=== PATIENT | female | born 1995 | race Caucasian/White ===

== ENCOUNTER 2022-05-11 19:53 | Inpatient (IN) | payer MEDICARE, MEDICAID ==
[2022-05-11 20:38] LABS: BASOPHILS % (AUTO) 0.3 %; EOSINOPHILS # (AUTO) 0.1 10^3/uL (0.0-0.7); EOSINOPHILS % (AUTO) 1.6 %; HCT - HEMATOCRIT 32.9 % (37.0-47.0); HGB - HEMOGLOBIN 9.3 g/dL (12.0-16.0); LYMPHOCYTES # (AUTO) 2.2 10^3/uL (1.5-3.5); LYMPHOCYTES % (AUTO) 30.6 %; MEAN CORPUSCULAR HEMOGLOBIN 22.4 pg (27.0-31.0); MEAN CORPUSCULAR HGB CONC 28.3 g/dL (32.0-36.0); MEAN CORPUSCULAR VOLUME 79.3 fL (81.0-99.0); MEAN PLATELET VOLUME 8.9 fL (7.9-10.8); MONOCYTES # (AUTO) 0.5 10^3/uL (0.0-1.0); MONOCYTES % (AUTO) 7.1 %; NEUTROPHILS # (AUTO) 4.3 10^3/uL (1.5-6.6); NEUTROPHILS % (AUTO) 60.1 %; PLT - PLATELET COUNT 297 10^3/uL (130-450); RED BLOOD COUNT 4.15 10^6/uL (4.20-5.40); RED CELL DISTRIBUTION WIDTH 16.9 % (12.0-15.0); WHITE BLOOD COUNT 7.1 x10^3/uL (4.8-10.8)
[2022-05-11 20:49] LABS: ALBUMIN 3.9 g/dL (3.2-5.5); ALBUMIN/GLOBULIN RATIO 1.1 (1.0-2.2); BILIRUBIN,TOTAL 0.6 mg/dL (0.2-1.0); CREATININE 0.8 mg/dL (0.4-1.0); TOTAL PROTEIN 7.5 g/dL (6.7-8.2)
[2022-05-11 20:57] LABS: BILIRUBIN,URINE NEGATIVE (NEGATIVE); GLUCOSE, URINE (UA) NEGATIVE (NEGATIVE); KETONES,URINE (UA) NEGATIVE (NEGATIVE); LEUKOCYTE ESTERASE, URINE NEGATIVE (NEGATIVE); NITRITE,URINE NEGATIVE (NEGATIVE); OCCULT BLOOD,URINE NEGATIVE (NEGATIVE); PROTEIN,URINE NEGATIVE (NEGATIVE); UROBILINOGEN,URINE 0.2 (NORMAL) E.U./dL (NORMAL)
[2022-05-11 20:59] LABS: CLARITY,URINE CLEAR (CLEAR); HCG UR QUAL NEGATIVE
[2022-05-11 21:07] LABS: PLATELET ESTIMATE, MANUAL NORMAL (130-450,000) (NORMAL); PLATELET MORPHOLOGY NORMAL APPEARANCE (NORMAL); SLIDE REVIEW? Indicated; WBC MORPHOLOGY (MULTIPLE) NORMAL APPEARANCE (NORMAL)
--- NOTE | 2022-05-11 21:36 | ED Physician Documentation ---
PD HPI ABD PAIN - Stated complaint Stated Complaint: ABD PX,VOMITTING - Chief complaint Chief Complaint: Abd Pain - History obtained from History obtained from: Patient - History of Present Illness Timing - onset: How many days ago (3) Timing - details: Gradual onset, Waxing and waning Pain level now: 8 Quality: Pain Location: All over / everywhere (predominantly across lower abdomen) Improved by: Other (nothing) Worsened by: Eating Associated symptoms: Nausea, Vomiting. No: Fever, Diarrhea, Constipation Recently seen: Emergency Dept - Additional information Additional information: c/o 3 days of abdominal pain, nausea and vomiting; she says these symptoms are typical of her many previous SBO. She says she is unable to keep any PO down including medications (such as benadryl and vicodin). 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 She says she usually goes to a different ED, as she lives in [facility], but she was on [place] tonight and thus comes to this ED. She says typically she gets IV fluids, benadryl 50mg IV (she says zofran does not improve her n/v and phernergan makes her jittery; she says the benadryl has helped with the n/v), and IV dilaudid. Review of Systems Constitutional: denies: Fever, Chills, Sweats Cardiac: reports: Reviewed and negative Respiratory: reports: Reviewed and negative GI: reports: Abdominal Pain, Nausea, Vomiting. denies: Diarrhea, Hematemesis, Bloody / black stool : denies: Now [facility] PD PAST MEDICAL HISTORY - Past Medical History Past Medical History: Yes Other Past Medical History: FAP - Past Surgical History Past Surgical History: Yes Other past surgical history: total colectomy - Present Medications Home Medications: Ambulatory Orders Medication Instructions Recorded Confirmed Mupirocin 2% Oint [Bactroban 2% 1 applic TOP BID #50 gm 03/26/22 Oint] - Allergies Allergies/Adverse Reactions: Allergies Allergy/AdvReac Type Severity Reaction Status Date / Time haloperidol [From Haldol] Allergy Anxiety Verified 05/11/22 20:17 metoclopramide [From Reglan] Allergy Itching Verified 05/11/22 20:17 morphine Allergy Edema Verified 05/11/22 20:17 - Social History Does the pt smoke?: No Smoking Status: Never smoker Does the pt drink ETOH?: No Does the pt have substance abuse?: No - Immunizations Immunizations are current?: Yes PD ED PE NORMAL - Vitals Vital signs reviewed: Yes - General General: Alert and oriented X 3, No acute distress, Well developed/nourished - HEENT HEENT: Moist mucous membranes - Neck Neck: Supple, no meningeal sign - Cardiac Cardiac: RRR, No murmur - Respiratory Respiratory: No respiratory distress, Clear bilaterally - Abdomen Abdomen: Normal bowel sounds, Soft, Non tender, Non distended, Other (multiple old surgical scars noted) - Derm Derm: Normal color, Warm and dry - Extremities Extremities: No edema Results - Vitals Vitals: Vital Signs - 24 hr 05/11/22 05/11/22 05/11/22 20:13 22:14 23:00 Temperature 36.7 C 37.0 C Heart Rate 70 72 55 L Respiratory 18 16 14 Rate Blood Pressure 119/62 120/87 H 96/73 O2 Saturation 100 100 100 05/12/22 05/12/22 05/12/22 00:00 01:00 03:00 Temperature Heart Rate 58 L 56 L 53 L Respiratory 14 16 14 Rate Blood Pressure 110/69 104/67 120/70 O2 Saturation 98 99 100 05/12/22 06:00 Temperature Heart Rate 61 Respiratory 16 Rate Blood Pressure 108/48 L O2 Saturation 96 Oxygen O2 Source Room air - Labs Labs: Laboratory Tests 05/11/22 05/11/22 05/11/22 20:34 20:34 20:35 WBC 7.1 RBC 4.15 L Hgb 9.3 L Hct 32.9 L MCV 79.3 L MCH 22.4 L MCHC 28.3 L RDW 16.9 H Plt Count 297 MPV 8.9 Neut # (Auto) 4.3 Lymph # (Auto) 2.2 Starke # (Auto) 0.5 Eos # (Auto) 0.1 Baso # (Auto) 0.0 Absolute Nucleated RBC 0.00 Nucleated RBC % 0.0 Manual Slide Review Indicated WBC Morphology NORMAL APPEARANCE Platelet Estimate NORMAL (130-450,000) Platelet Morphology NORMAL APPEARANCE RBC Morph Micro Appear 1+ HYPOCHROMASIA Sodium 138 Potassium 4.0 Chloride 103 Carbon Dioxide 29 Anion Gap 6.0 BUN 14 Creatinine 0.8 Estimated GFR (MDRD) 85 L Glucose 96 Calcium 9.0 Total Bilirubin 0.6 AST 14 ALT 12 Alkaline Phosphatase 69 Total Protein 7.5 Albumin 3.9 Globulin 3.6 Albumin/Globulin Ratio 1.1 Lipase 62 H Urine Color YELLOW Urine Clarity CLEAR Urine pH 6.0 Ur Specific [place] 1.025 Urine Protein NEGATIVE Urine Glucose (UA) NEGATIVE Urine Ketones NEGATIVE Urine Occult Blood NEGATIVE Urine Nitrite NEGATIVE Urine Bilirubin NEGATIVE Urine Urobilinogen 0.2 (NORMAL) Ur Leukocyte Esterase NEGATIVE Ur Microscopic Review NOT INDICATED Urine Culture Comments NOT INDICATED Urine HCG, Qual 05/11/22 20:35 WBC RBC Hgb Hct MCV MCH MCHC RDW Plt Count MPV Neut # (Auto) Lymph # (Auto) Starke # (Auto) Eos # (Auto) Baso # (Auto) Absolute Nucleated RBC Nucleated RBC % Manual Slide Review WBC Morphology Platelet Estimate Platelet Morphology RBC Morph Micro Appear Sodium Potassium Chloride Carbon Dioxide Anion Gap BUN Creatinine Estimated GFR (MDRD) Glucose Calcium Total Bilirubin AST ALT Alkaline Phosphatase Total Protein Albumin Globulin Albumin/Globulin Ratio Lipase Urine Color Urine Clarity Urine pH Ur Specific [place] Urine Protein Urine Glucose (UA) Urine Ketones Urine Occult Blood Urine Nitrite Urine Bilirubin Urine Urobilinogen Ur Leukocyte Esterase Ur Microscopic Review Urine Culture Comments Urine HCG, Qual NEGATIVE - Rads (name of study) CT A/P Radiology: Prelim report reviewed, See rad report PD MEDICAL DECISION MAKING - ED course Complexity details: reviewed results, re-evaluated patient, considered differential, d/w patient ED course: No concerning findings on blood tests (mild anemia with low indices on otherwise normal CBC (hgb 9.3); patient says she is aware of anemia, this is not new), normal ER abdominal panel including lipase and LFTs. UA negative and UHCG negative. She is given 1 liter NS IV with 50mg IV benadryl and 1mg IV dilaudid. MACI reflects this is her 21st ED visit over past 12 months, involving 3 EDs. She has had 10 inpatient stays over past 12 months to 3 different hospitals. Patient had prolonged ED stay for observation, hoping to have adequate improvement in symptoms to allow for d/c home. However, she had recurrence of abdominal pain requiring repeated doses of the IV dilaudid. I explained that imaging would likely be necessary if I were to try to get her admitted to [facility], and patient was agreeable to CT A/P. CT A/P interpreted by radiology as "Postsurgical changes of the bowel with distended loops of small bowel in the right lower quadrant. This could indicate partial obstruction. There is no abscess or perforation. Cystic lesion of the left pelvis measuring 7.9 x 3.4 cm" [address] A/P performed and results available, patient again is having recurrent of the abdominal pain and she has another episode of emesis (approximately 100- 200 cc) Records obtained from [facility] indicate CTs obtained over a few visits in March (last month) showed a similar left pelvic lesion, varying in size but most recent CT had measurement of approximately 10 cm (thus today's measurements appear to be smaller than previous). I contacted Dr. Arteaga who came to ED to evaluate patient. She will admit patient for conservative approach (pain medication and benadryl and monitoring for progression or improvement in symptoms). Patient strongly prefers to avoid NGT; patient says NGT has often worsened her symptoms rather than improve them. Departure - Departure Disposition: ED Place in Observation Clinical Impression: Small bowel obstruction Condition: Good
[2022-05-11] MEDS ORDERED: HYDROmorphone 1 MG/ML CARPUJECT IVP STA ×2 (21:55→23:34)
[2022-05-11] MEDS ORDERED: SODIUM CHLORIDE 0.9% 1,000 ML IV STA (21:55)
[2022-05-11] MEDS ORDERED: diphenhydrAMINE INJ 50 MG/ML VIAL IVP STA (21:55)
[2022-05-12] MEDS ORDERED: HYDROmorphone 1 MG/ML CARPUJECT IVP STA ×3 (00:43→06:06)
[2022-05-12] MEDS ORDERED: SODIUM CHLORIDE 0.9% 1,000 ML IV STA (00:55)
[2022-05-12] MEDS ORDERED: iohexoL-300 100 ML VIAL ONE (02:16)
[2022-05-12] MEDS ORDERED: DIATRIZOATE MEGLU/DIATRIZO SOD 30 ML BOTTLE PO ONE ×2 (02:16→04:47)
[2022-05-12] MEDS ORDERED: diphenhydrAMINE INJ 50 MG/ML VIAL IVP STA (02:39)
[2022-05-12] MEDS ORDERED: iohexoL-300 100 ML VIAL IVP ONE (04:46)
[2022-05-12] MEDS ORDERED: DEXTROSE 5%-0.45% NACL 1,000 ML IV STA (07:52)
--- NOTE | 2022-05-12 08:24 | CT Report ---
PROCEDURE: Abdomen/Pelvis W INDICATIONS: abdominal pain, possible SBO CONTRAST: IV CONTRAST: Isovue 300 ml: 100 PO CONTRAST: Isovue 300 ml30 TECHNIQUE: After the administration of contrast, 5 mm thick sections acquired from the diaphragms to the symphy sis. 5 mm thick coronal and sagittal reformats were acquired. For radiation dose reduction, the fol lowing was used: automated exposure control, adjustment of mA and/or kV according to patient size. COMPARISON: None. FINDINGS: Image quality: Excellent Lower chest: Unremarkable Solid organs: "Hot quadrate" sign in the liver. Gallbladder is unremarkable. No biliary ductal dilati on. Incidentally noted possible pancreas divisum. Spleen is unremarkable. No adrenal nodule. Right ki dney is unremarkable without hydronephrosis. The left kidney is in the left lower quadrant and malrot ated, without hydronephrosis. Vessels and lymph nodes: No abdominal aortic aneurysm. Chest wall, abdominal wall, and azygos venous reflux of contrast. The SVC is not seen on this study. No abdominal adenopathy by size criteria. Bowel and peritoneum: Stomach is unremarkable. There are bowel suture lines. Prominent loops of small bowel are seen in the lower abdomen in the right lower quadrant, without pathologic dilation. There is some bowel loops that appear tethered to the pelvis, without obstruction. No pathologic ascites. Body wall: Venous collaterals with contrast reflux. Ventral wall postsurgical changes. Pelvis: Not well evaluated on CT, uterus is unremarkable. There is a 8 x 4 x 7 cm fluid containing le adriana, possibly an adnexal cystic lesion or hydrosalpinx in the left adnexal region. Bladder is within normal limits. Bones: No acute or suspicious osseous abnormality. IMPRESSION: No significant small bowel dilation. Multiple bowel suture lines are present. There are bowel loops that appear tethered region of the pelvis. Prominent loops of small bowel in the right lo wer quadrant could indicate slow transit or partial obstruction. Fluid containing lesion measuring up to 8 cm in the left adnexal region, probably hydrosalpinx, versu s an ovarian cyst. Consider ultrasound to further evaluate if necessary. Body wall collaterals and contrast reflux to the quadrate of the liver can sometimes be seen with SVC obstruction or as an incidental finding. The SVC is not visualized on this study. Other incidental f indings above. Agree with preliminary report. Reviewed by: John Russ MD on 05/12/2022 8:22 AM PDT Approved by: John Russ MD on 05/12/2022 8:22 AM PDT Station ID: [id number]
[2022-05-12] MEDS: HYDROmorphone 0.5 MG/0.5 ML SYRINGE IVP PRN ×2 (09:01→11:58)
[2022-05-12] MEDS: SODIUM CHLORIDE FLUSH 0.9% 10 ML SYRINGE IVP SCH ×4 (09:18→21:52)
[2022-05-12] MEDS: diphenhydrAMINE INJ 50 MG/ML VIAL IVP PRN ×3 (10:43→22:57)
--- NOTE | 2022-05-12 10:53 | PHARMACY PROGRESS NOTE ---
- Best Possible Medication History Admit Date and Time: 05/12/22 0752 Processed by: Pharmacy Medication History completed: Yes Patient Interview: Completed Secondary Source(s): Pharmacy records, Insurance records As the person ultimately responsible for medication therapy, providers are able to order a medication from an existing home medication list in [facility] via the "Reconcile Routine" prior to Confirmation of that medication by support specialist. Such practice is discouraged except when the physician, in their clinical judgment, deems that a medical need exists for a medication without regard to previous use.
--- NOTE | 2022-05-12 12:58 | SURGERY HX AND PHYSICAL(T) ---
Surgical History & Physical - Chief Complaint/HPI Chief Complaint: abdominal pain "It feels like I have an obstruction" History of Present Illness: This is a 27-year-old female with a complex past surgical history including a subtotal abdominal colectomy for FAP in 2010, desmoid tumor resection, ileostomy creation, and most recently, in December of this year, ileostomy takedown. The patient has struggled with frequent, recurrent small bowel obstructions which usually resolve with conservative management and bowel rest. She is over 20 ER visits from the last 1 year and greater then 12 admissions during that same time period, most of which were for similar symptoms to her current presentation. The patient states that 3 days ago, she had worsening abdominal pain, and nausea with vomiting. She vomits whenever she tries to eat. She has been unable to keep down water and her oral medications. Due to her persistent symptoms, she presented to the emergency department last night. She states that most antinausea medications do not work well for her, and many cause her to feel restless, anxious, and jittery. She feels Benadryl works best for her. She gets extreme itching with morphine but does well with IV Dilaudid. For persistent symptoms, the patient is being admitted under observation status to the surgical service. - PMH/PSH/Social Hx Does the pt have a hx of MRSA?: No Neurological History: Migraines Cardiovascular: None Respiratory: None Skin: None Endocrine/Autoimmune: None Gastrointestinal: GERD, Colon polyps, Pancreatitis, Other (Bazan symptom (FAP with desmoid tumors)) Urinary: Kidney stones Musculoskeletal: None Blood Disorders: None Psychiatric: Depression, Anxiety, Panic attacks, Claustrophobia, Obsessive compulsive disorder PMH Other: FAP-genetic colon cancer General: Appendectomy, Bowel surgery (Subtotal colectomy, multiple additional abdominal surgeries related to FAP and desmoid tumors. Most recent surgery was in December 2021, ileostomy takedown), Colonoscopy, EGD Urologic: Kidney stents PSH Other: total colectomy Smoking Status: Never smoker Does the pt drink ETOH?: No Does the pt have substance abuse?: No - Family Hx Family Hx: Other (Mother: FAP) - Home Meds and Allergies Home Medications: HYDROcod/ACETAM 5/325 [[place] 5/325] 1 tablet PO Q6H PRN 05/12/22 diphenhydrAMINE [Benadryl] 50 mg PO Q4-6H PRN 05/12/22 Allergies/Adverse Reactions: Allergies Allergy/AdvReac Type Severity Reaction Status Date / Time haloperidol [From Haldol] Allergy Anxiety Verified 05/11/22 20:17 metoclopramide [From Reglan] Allergy Itching Verified 05/11/22 20:17 morphine Allergy Edema Verified 05/11/22 20:17 - Review of Systems Constitutional: Other (A complete 10 point review of symptoms is otherwise negative except for that noted in HPI and PMH.) - Vital Signs Heart Rate: 61 Blood Pressure: 108/48 Temperature: 36.3 C Respiratory Rate: 16 O2 Saturation: 98 Weight (kg): 65.7 kg Height: 1.6 m - Physical Exam General Appearance: positive: No acute distress, Alert Eyes Bilatera: positive: Normal inspection, PERRL, EOMI ENT: positive: ENT inspection nml, Pharynx nml Neck: positive: No JVD Respiratory: positive: No respiratory distress Cardiovascular: positive: Regular rate & rhythm, No murmur Peripheral Pulses: positive: 2+ Abdomen: positive: Tenderness (Bilateral lower quadrants, moderate), Other (Multiple surgical scars consistent with previous surgeries, well-healed). negative: Guarding, Rebound, Mass Extremities: positive: Non-tender, Full ROM Neurologic/Psychiatric: positive: Oriented x3 - Patient Review Patient Review: Problems were reviewed with the patient during this visit. Medications were reviewed with the patient during this visit. Allergies were reviewed this patient during this visit. Pertinent Tests Reviewed: All pertitent test for this patient were reviewed. - Assessment & Plan Assessment and Plan: 27 y/o F with: 1. pSBO - Almost certainly due to adhesive disease. This is a recurrent problem for the patient, typically managed by her surgical team at in [place]. - Patient presents with symptoms similar to previous obstructions. Her CT demonstrates dilated distal small bowel (not beyond that which is expected with her surgical history) without free fluid or free air. - She is not tolerating significant PO at this time. Plan for bowel rest. Patient refusing NG as it "usually makes me feel worse" 2/2 significant gagging with tube. - IVF, pain, nausea meds ordered. Patient states dilaudid and benadryl work best for her. I have informed her that these two medications should not be given together or close in timing due to risk for respiratory suppression. She voices understanding. - Persistent nausea this morning. If her vomiting worsens, she is willing to reconsider possible NG. If she is not demonstrating resolution tomorrow AM, we will consider gastrograffin SBFT. I explained this plan of care with the patient, her questions were answered, and she is agreeable. 2. Chronic malnutrition - patient has been on TPN in the past, but line became infected requiring removal about three months ago, and she has been doing fairly well with PO nutrition during that time. States she is able to eat 0025-3753 kCal/day. - She's been NPO for three days prior to admission. If her symptoms do not improve in the next day or two, will consider PPN vs TPN. - Patient scheduled for PAC placement in the near future for TPN. 3. Anemia, chronic, asymptomatic - continue to monitor Plan for admission to floor under observation status at this time.
[2022-05-12] MEDS: HYDROmorphone 1 MG/ML CARPUJECT IVP PRN ×3 (15:47→21:52)
[2022-05-12] MEDS ORDERED: diphenhydrAMINE INJ 50 MG/ML VIAL IVP ONE (17:00)
[2022-05-12] MEDS: SODIUM CHLORIDE FLUSH 0.9% 10 ML SYRINGE IVP PRN (22:57)
[2022-05-13] MEDS: SODIUM CHLORIDE FLUSH 0.9% 10 ML SYRINGE IVP SCH ×5 (00:47→16:25)
[2022-05-13] MEDS: HYDROmorphone 1 MG/ML CARPUJECT IVP PRN ×7 (00:47→19:29)
[2022-05-13] MEDS: SODIUM CHLORIDE FLUSH 0.9% 10 ML SYRINGE IVP PRN ×7 (04:08→19:30)
[2022-05-13] MEDS: diphenhydrAMINE INJ 50 MG/ML VIAL IVP PRN ×3 (05:07→17:29)
--- NOTE | 2022-05-13 09:46 | PROVIDER PROGRESS NOTE ---
Subjective - General Admit Date: 05/12/22 - Review of Systems General: positive: Other (Abdominal pain improved but still present in the lower quadrants; Passing flatus but no BM yet; Nausea and vomiting resolved; Would like to try ice chips.) Objective - Patient Data Reviewed Vital Signs: Yes Vital Signs: Vital Signs x48h Temp Pulse Resp BP Pulse Ox 05/13/22 07:20 97.7 F 63 16 123/89 H 100 05/13/22 03:56 98.1 F 57 L 20 115/86 H 100 Weight: Weight 05/11/22 05/12/22 05/13/22 23:59 23:59 23:59 Weight (kg) 65.771 kg 65.7 kg Intake & Output: Intake and Output Totals x24h 05/11/22 05/12/22 05/13/22 23:59 23:59 23:59 Intake Total 1000 2000 Output Total 100 Balance 1000 1900 - Lab Results Lab Results: 05/11/22 20:34 05/11/22 20:34 Other Lab Results: Lab Results x24hrs 05/12/22 Range/Units 20:45 SARS-CoV-2 (PCR) NOT DETECTED - Current Medications Current Medications: Current Medications Generic Name Dose Route Start Last Admin Trade Name Freq PRN Reason Stop Dose Admin Diphenhydramine HCl 50 mg 05/12/22 16:34 05/13/22 05:07 Diphenhydramine Inj 50 Mg/Ml Vial IVP 50 mg Q6H PRN Administration Nausea / Vomiting Hydromorphone HCl 1 mg 05/12/22 15:33 05/13/22 07:14 Hydromorphone 1 Mg/Ml Carpuject IVP 1 mg Q3H PRN Administration PAIN Sodium Chloride 10 ml 05/12/22 09:00 05/13/22 08:46 Sodium Chloride Flush 0.9% 10 Ml Syringe IVP 10 ml 0100,0900,1700 LONNIE Administration Sodium Chloride 10 ml 05/12/22 07:52 05/13/22 07:14 Sodium Chloride Flush 0.9% 10 Ml Syringe IVP 10 ml PRN PRN Administration NEEDED PER PROVIDER ORDERS - Physical Exam General Appearance: positive: No acute distress, Alert Respiratory: positive: Breath sounds nml Cardiovascular: positive: Regular rate & rhythm Abdomen: positive: Other (Soft, non-distended; some tympany to percussion right side and mild tenderness in both lower quadrants with palpation. No mass. All prior wounds healds. Active BS.) Comments/Other: My review of her CT scan performed yesterday shows mild small bowel distension with stool and air in her rectal pouch. No evidence of free air, free fluid, or gastric distension. Impression/Plan - Problem List Problem List: Chronic, recurrent partial small bowel obstruction Assessment: Recurrent partial small bowel obstruction with some resolution of her symptoms over the first 24 hours of admission. Her symptoms are not consistent with pouchitis. She would like to try ice chips and ambulate in the high today. She has an appointment for a cheryl-cath placement at [facility] next Monday and would like to have a PCR Covid test on Monday if she is still an inpatient per request. Plan: Ambulate in high today Start with ice chips and progress as tolerated. If she is not improved by tomorrow, will order a gastrografin tracer study and begin Ketorolac. I don't see a reason for labs today but will consider a Covid PCR if she is still an in-patient through Monday.
[2022-05-14] MEDS: HYDROmorphone 1 MG/ML CARPUJECT IVP PRN ×8 (00:48→23:00)
[2022-05-14] MEDS: diphenhydrAMINE INJ 50 MG/ML VIAL IVP PRN ×4 (00:48→18:52)
[2022-05-14] MEDS: SODIUM CHLORIDE FLUSH 0.9% 10 ML SYRINGE IVP SCH ×3 (00:49→16:06)
[2022-05-14] MEDS ORDERED: DEXTROSE 5%-0.45% NACL 1,000 ML IV SCH (02:00)
[2022-05-14] MEDS: SODIUM CHLORIDE FLUSH 0.9% 10 ML SYRINGE IVP PRN ×2 (02:41→03:43)
[2022-05-14 05:36] LABS: BASOPHILS % (AUTO) 0.3 %; EOSINOPHILS # (AUTO) 0.1 10^3/uL (0.0-0.7); EOSINOPHILS % (AUTO) 1.6 %; HCT - HEMATOCRIT 29.4 % (37.0-47.0); HGB - HEMOGLOBIN 8.6 g/dL (12.0-16.0); LYMPHOCYTES # (AUTO) 1.6 10^3/uL (1.5-3.5); LYMPHOCYTES % (AUTO) 41.8 %; MEAN CORPUSCULAR HEMOGLOBIN 22.8 pg (27.0-31.0); MEAN CORPUSCULAR HGB CONC 29.3 g/dL (32.0-36.0); MEAN PLATELET VOLUME 9.5 fL (7.9-10.8); MONOCYTES # (AUTO) 0.3 10^3/uL (0.0-1.0); MONOCYTES % (AUTO) 7.4 %; NEUTROPHILS # (AUTO) 1.9 10^3/uL (1.5-6.6); NEUTROPHILS % (AUTO) 48.9 %; PLT - PLATELET COUNT 220 10^3/uL (130-450); RED BLOOD COUNT 3.77 10^6/uL (4.20-5.40); RED CELL DISTRIBUTION WIDTH 16.5 % (12.0-15.0); WHITE BLOOD COUNT 3.8 x10^3/uL (4.8-10.8)
[2022-05-14 05:56] LABS: CALCIUM 8.9 mg/dL (8.5-10.3); CREATININE 0.7 mg/dL (0.4-1.0); POTASSIUM 3.5 mmol/L (3.5-5.0)
--- NOTE | 2022-05-14 09:27 | PROVIDER PROGRESS NOTE ---
Subjective - General Admit Date: 05/13/22 - Review of Systems HEENT: positive: No symptoms Pulmonary: positive: No symptoms Cardiovascular: positive: No symptoms Gastrointestinal: positive: Other (Difficulty swallowing liquids (emesis); Passing flatus; Feels like a BM is imminent) - Other Other Information/Narrative: Feeling better; Continues with flatus but denies BM; Blood sugar a bit low last night so offered orange juice and IV D5 .45NS started at maintenance rate. Patient ambulatory and thinks she might have a BM today. She reminded me that she needs a Covid PCR chaim in preparation for her port placement Objective - Patient Data Vital Signs: Vital Signs x48h Temp Pulse Resp BP BP Pulse Ox 05/14/22 08:16 99.0 F 68 18 120/78 100 05/14/22 03:44 97.5 F L 62 18 117/72 100 Weight: Weight 05/12/22 05/13/22 05/14/22 23:59 23:59 23:59 Weight (kg) 65.7 kg Intake & Output: Intake and Output Totals x24h 05/12/22 05/13/22 05/14/22 23:59 23:59 23:59 Intake Total 2000 120 227.083 Output Total 100 500 650 Balance 1900 -380 -422.917 - Lab Results Lab Results: 05/14/22 05:18 05/14/22 05:18 Other Lab Results: Lab Results x24hrs 05/14/22 05/14/22 Range/Units 05:18 05:18 WBC 3.8 L (4.8-10.8) x10^3/uL RBC 3.77 L (4.20-5.40) 10^6/uL Hgb 8.6 L (12.0-16.0) g/dL Hct 29.4 L (37.0-47.0) % MCV 78.0 L (81.0-99.0) fL MCH 22.8 L (27.0-31.0) pg MCHC 29.3 L (32.0-36.0) g/dL RDW 16.5 H (12.0-15.0) % Plt Count 220 (130-450) 10^3/uL MPV 9.5 (7.9-10.8) fL Neut # (Auto) 1.9 (1.5-6.6) 10^3/uL Lymph # (Auto) 1.6 (1.5-3.5) 10^3/uL [place] # (Auto) 0.3 (0.0-1.0) 10^3/uL Eos # (Auto) 0.1 (0.0-0.7) 10^3/uL Baso # (Auto) 0.0 (0.0-0.1) 10^3/uL Absolute Nucleated RBC 0.00 x10^3/uL Nucleated RBC % 0.0 /100WBC Sodium 137 (135-145) mmol/L Potassium 3.5 (3.5-5.0) mmol/L Chloride 105 (101-111) mmol/L Carbon Dioxide 24 (21-32) mmol/L Anion Gap 8.0 (6-13) BUN 7 (6-20) mg/dL Creatinine 0.7 (0.4-1.0) mg/dL Estimated GFR (MDRD) 99 (>89) Glucose 83 (70-100) mg/dL Calcium 8.9 (8.5-10.3) mg/dL - Current Medications Current Medications: Current Medications Generic Name Dose Route Start Last Admin Trade Name Freq PRN Reason Stop Dose Admin Diphenhydramine HCl 50 mg 05/12/22 16:34 05/14/22 06:56 Diphenhydramine Inj 50 Mg/Ml Vial IVP 50 mg Q6H PRN Administration Nausea / Vomiting Hydromorphone HCl 1 mg 05/12/22 15:33 05/14/22 06:57 Hydromorphone 1 Mg/Ml Carpuject IVP 1 mg Q3H PRN Administration PAIN Dextrose/Sodium Chloride 1,000 mls @ 125 mls/hr 05/14/22 02:00 05/14/22 04:30 D5.45ns IV 0 mls/hr .Q8H LONNIE Infusion Sodium Chloride 10 ml 05/12/22 09:00 05/14/22 00:49 Sodium Chloride Flush 0.9% 10 Ml Syringe IVP 10 ml 0100,0900,1700 LONNIE Administration Sodium Chloride 10 ml 05/12/22 07:52 05/14/22 03:43 Sodium Chloride Flush 0.9% 10 Ml Syringe IVP 10 ml PRN PRN Administration NEEDED PER PROVIDER ORDERS - Physical Exam General Appearance: positive: No acute distress, Alert Eyes Bilateral: positive: Normal inspection Respiratory: positive: No respiratory distress, Breath sounds nml Cardiovascular: positive: Regular rate & rhythm Abdomen: positive: Nml bowel sounds, No distention, Other (Minimal tenderness to palpation lower quadrants) Skin: positive: Color nml, Warm Extremities: positive: Non-tender, Full ROM ABX Reporting Has patient been on IV antibiotics over the past 48 hours?: No Impression/Plan - Problem List Problem List: Partial SBO Assessment: Partial SBO - resolving - she is passing flatus. Given her difficulty with oral liquids, there may be a component of gastroparesis that is as yet undiagnosed. I discussed this with her and she is not interested in the use of Reglan at this time. She is also not interested in a suppository or oral laxatives. Since she is unable to tolerate oral liquid at this time and she is not having emesis that requires an NGT, a small bowel study will not be offered today. Plan: 1) Continue to ambulate regularly throughout the day 2) Ketorolac IV will be administered to help manage her abdominal discomfort and perhaps reduce small bowel inflammation 3) Clear liquids today 4) Decrease IV fluids to 75 ml/hr 5) Covid PCR tomorrow
[2022-05-14] MEDS: DEXTROSE 5%-0.45% NACL 1,000 ML IV SCH (10:09)
[2022-05-14] MEDS ORDERED: KETOROLAC 30 MG/ML VIAL IVP SCH (12:00)
[2022-05-14] MEDS: IBUPROFEN 400 MG TABLET PO SCH ×2 (12:59→18:21)
--- NOTE | 2022-05-14 15:48 | PROVIDER PROGRESS NOTE ---
Subjective - Prog Note Date Prog Note Date: 05/14/22 Prog Note Time: 15:36 - Subjective Pt reports feeling: Improved Subjective: Patient is comfortable; No emesis; Pain under good control; Had a small BM today; Ambulatory; Would like to have diet advanced which has been ordered. Objective - Vital Signs/Intake & Output Vital Signs: Vital Signs x48h Temp Pulse Resp BP BP Pulse Ox 05/14/22 13:01 97.7 F 80 18 146/79 H 100 05/14/22 08:16 99.0 F 68 18 120/78 100 Intake & Output: Intake & Output 05/11/22 05/12/22 05/13/22 05/14/22 23:59 23:59 23:59 23:59 Intake Total 1000 2000 120 830.000 Output Total 678 957 8381 Balance 1000 1900 -380 -940.000 - Lab Results Fish Bones: 05/14/22 05:18 05/14/22 05:18 Other Labs: Lab Results x24hrs 05/14/22 05/14/22 Range/Units 05:18 05:18 WBC 3.8 L (4.8-10.8) x10^3/uL RBC 3.77 L (4.20-5.40) 10^6/uL Hgb 8.6 L (12.0-16.0) g/dL Hct 29.4 L (37.0-47.0) % MCV 78.0 L (81.0-99.0) fL MCH 22.8 L (27.0-31.0) pg MCHC 29.3 L (32.0-36.0) g/dL RDW 16.5 H (12.0-15.0) % Plt Count 220 (130-450) 10^3/uL MPV 9.5 (7.9-10.8) fL Neut # (Auto) 1.9 (1.5-6.6) 10^3/uL Lymph # (Auto) 1.6 (1.5-3.5) 10^3/uL Caroline # (Auto) 0.3 (0.0-1.0) 10^3/uL Eos # (Auto) 0.1 (0.0-0.7) 10^3/uL Baso # (Auto) 0.0 (0.0-0.1) 10^3/uL Absolute Nucleated RBC 0.00 x10^3/uL Nucleated RBC % 0.0 /100WBC Sodium 137 (135-145) mmol/L Potassium 3.5 (3.5-5.0) mmol/L Chloride 105 (101-111) mmol/L Carbon Dioxide 24 (21-32) mmol/L Anion Gap 8.0 (6-13) BUN 7 (6-20) mg/dL Creatinine 0.7 (0.4-1.0) mg/dL Estimated GFR (MDRD) 99 (>89) Glucose 83 (70-100) mg/dL Calcium 8.9 (8.5-10.3) mg/dL Assessment/Plan - Problem List (1) Small bowel obstruction Impression: Clinically improved; Will advance diet. Hopefully home tomorrow.
[2022-05-14] MEDS: FAMOTIDINE 20 MG TABLET PO SCH (21:07)
[2022-05-15] MEDS: DEXTROSE 5%-0.45% NACL 1,000 ML IV SCH (00:11)
[2022-05-15] MEDS: IBUPROFEN 400 MG TABLET PO SCH ×2 (00:11→06:09)
[2022-05-15] MEDS: SODIUM CHLORIDE FLUSH 0.9% 10 ML SYRINGE IVP SCH ×2 (01:13→09:00)
[2022-05-15] MEDS: diphenhydrAMINE INJ 50 MG/ML VIAL IVP PRN ×2 (01:13→07:33)
[2022-05-15] MEDS: HYDROmorphone 1 MG/ML CARPUJECT IVP PRN ×3 (02:55→09:00)
[2022-05-15] MEDS: SODIUM CHLORIDE FLUSH 0.9% 10 ML SYRINGE IVP PRN ×3 (02:55→07:34)
[2022-05-15 08:22] VITALS: BP 116/62
[2022-05-15] MEDS: FAMOTIDINE 20 MG TABLET PO SCH (09:04)
--- NOTE | 2022-05-15 09:04 | PROVIDER PROGRESS NOTE ---
Subjective - General Admit Date: 05/13/22 - Review of Systems General: positive: Other (Tolerating a full liquid diet; Passing stool and flatus; Continues with mild hypogastric abdominal pain but significantly improved since admission. Would like to go home today.) HEENT: positive: No symptoms Pulmonary: positive: No symptoms Cardiovascular: positive: No symptoms Gastrointestinal: positive: Other (Difficulty swallowing liquids (emesis); Passing flatus; Feels like a BM is imminent) Objective - Patient Data Vital Signs: Vital Signs x48h Temp Pulse Resp BP BP Pulse Ox 05/15/22 08:22 97.9 F 79 18 116/62 100 05/15/22 05:55 97.2 F L 66 16 119/66 100 Intake & Output: Intake and Output Totals x24h 05/13/22 05/14/22 05/15/22 23:59 23:59 23:59 Intake Total 120 1884.125 8775 Output Total 500 2595 1200 Balance -380 -1315.000 0 - Lab Results Lab Results: 05/14/22 05:18 05/14/22 05:18 Other Lab Results: Lab Results x24hrs 05/15/22 Range/Units 06:10 SARS-CoV-2 (PCR) NOT DETECTED - Current Medications Current Medications: Current Medications Generic Name Dose Route Start Last Admin Trade Name Freq PRN Reason Stop Dose Admin Diphenhydramine HCl 50 mg 05/12/22 16:34 05/15/22 07:33 Diphenhydramine Inj 50 Mg/Ml Vial IVP 50 mg Q6H PRN Administration Nausea / Vomiting Famotidine 20 mg 05/14/22 21:00 05/14/22 21:07 Famotidine 20 Mg Tablet PO 20 mg BID LONNIE Administration Hydromorphone HCl 1 mg 05/12/22 15:33 05/15/22 06:09 Hydromorphone 1 Mg/Ml Carpuject IVP 1 mg Q3H PRN Administration PAIN Dextrose/Sodium Chloride 1,000 mls @ 75 mls/hr 05/14/22 09:42 05/15/22 00:11 D5.45ns IV 75 mls/hr .[id number] LONNIE Administration Ibuprofen 400 mg 05/14/22 12:00 05/15/22 06:09 Ibuprofen 400 Mg Tablet PO 400 mg Q6HR LONNIE Administration Sodium Chloride 10 ml 05/12/22 09:00 05/15/22 01:13 Sodium Chloride Flush 0.9% 10 Ml Syringe IVP 10 ml 0100,0900,1700 LONNIE Administration Sodium Chloride 10 ml 05/12/22 07:52 05/15/22 07:34 Sodium Chloride Flush 0.9% 10 Ml Syringe IVP 10 ml PRN PRN Administration NEEDED PER PROVIDER ORDERS - Physical Exam General Appearance: positive: No acute distress Eyes Bilateral: positive: Normal inspection Neck: positive: Nml inspection Respiratory: positive: No respiratory distress, Breath sounds nml Abdomen: positive: No organomegaly, No distention, Other (Minimal lower abdominal tenderness to palpation; No tympany to percussion; BS active) Skin: positive: Color nml ABX Reporting Has patient been on IV antibiotics over the past 48 hours?: No Impression/Plan - Problem List Problem List: Partial, recurrent, small bowel obstruction Assessment: PSBO - resolved. Plan: 1) Discharge to home (Father will pick her up) 2) Continue to advance diet as tolerated 3) Continue Ibuprofen and Pepcid at home 4) Covid PCR this morning negative. Patient given a copy of report 5) FU [facility] for ongoing care Dima Mcgovern MD, FACS General Surgery Service 05/15/2022
--- NOTE | 2022-05-15 09:14 | Discharge Plan ---
Discharge Plan Problem Reviewed?: Yes Disposition: Home, Self Care Condition: Good Prescriptions: Ibuprofen [Motrin] 400 mg PO Q6HR #90 tab Famotidine [Pepcid] 20 mg PO BID #60 tab Diet: Soft Activity Restrictions: No Restrictions Shower Restrictions: No Plan of Treatment: 1) Continue a soft diet for the next several days. 2) Use Ibuprofen and Pepcid to help manage your lower abdominal discomfort. 3) Follow up with [facility] for your port placement on Monday 4) If your symptoms recur prior to your scheduled procedure on Monday, it would be prudent to contact your care team at [facility] for evaluation and management Assessment: Recurrent, partial small bowel obstruction - resolved Additional Instructions or Follow Up instructions: Follow-up with your care team at [facility] on Monday for your surgical procedure. If your symptoms recur before that time, please contact your care team at [facility] for evaluation and management. No Smoking: If you smoke, Please STOP! Call for help.
--- NOTE | 2022-05-15 09:25 | DISCHARGE SUMMARY ---
"Discharge Summary Admit Date: 05/11/22 Discharge Date: 05/15/22 Discharging Provider: Dima Mcgovern MD Primary Care Provider: Dima Mcgovern MD Code Status: Attempt Resuscitation Condition at Discharge: Good Discharge Disposition: 01 Home, Self Care - DIAGNOSES Admission Diagnoses: Recurrent, partial small bowel obstruction Discharge Diagnoses with Status of Each Condition: Recurrent, partial small bowel obstruction - resolved - HPI History of Present Illness: This is a 27-year-old female with a complex past surgical history including a subtotal abdominal colectomy for FAP in 2010, desmoid tumor resection, ileostomy creation, and most recently, in December of this year, ileostomy takedown. The patient has struggled with frequent, recurrent small bowel obstructions which usually resolve with conservative management and bowel rest. She is over 20 ER visits from the last 1 year and greater then 12 admissions during that same time period, most of which were for similar symptoms to her current presentation. The patient states that 3 days ago, she had worsening abdominal pain, and nausea with vomiting. She vomits whenever she tries to eat. She has been unable to keep down water and her oral medications. Due to her persistent symptoms, she presented to the emergency department last night. She states that most antinausea medications do not work well for her, and many cause her to feel restless, anxious, and jittery. She feels Benadryl works best for her. She gets extreme itching with morphine but does well with IV Dilaudid. For persistent symptoms, the patient is being admitted under observation status to the surgical service. - CONSULTS | PROCEDURES Procedures: None - HOSPITAL COURSE Hospital Course: The patient refused an NGT and was thus treated with bowel rest and IV fluids. Ibuprofen/Pepcid were started and with intermittent use of IV dilaudid, her lower abdominal pain improved and she began to pass flatus. As her diet was slowly advanced, she started to have bowel motions. At the time of discharge, she was afebrile, her abdominal distension was resolved, she was tolerating a full liquid diet and passing stool and flatus from the rectum. Her VS were normal throughout her hospitalization as were her labs except for a single episode of mild hypoglycemia (glu = 60) treated with orange juice. She requested a Covid PCR be performed on Monday in preparation for her port placement at [facility] on Monday. This was performed and was negative. She was given a copy of the report. She was advised to remain on a soft diet and to contact the [facility] if she had recurrence of her symptoms prior to Monday's planned procedure. - ALLERGIES Allergies/Adverse Reactions: Allergies Allergy/AdvReac Type Severity Reaction Status Date / Time haloperidol [From Haldol] Allergy Anxiety Verified 05/11/22 20:17 metoclopramide [From Reglan] Allergy Itching Verified 05/11/22 20:17 morphine Allergy Edema Verified 05/11/22 20:17 - MEDICATIONS Home Medications: Ambulatory Orders Medication Instructions Recorded Confirmed HYDROcod/ACETAM 5/325 [[place] 5/325] 1 tablet PO Q6H PRN 05/12/22 05/12/22 diphenhydrAMINE [Benadryl] 50 mg PO Q4-6H PRN 05/12/22 05/12/22 Famotidine [Pepcid] 20 mg PO BID #60 tab 05/15/22 Ibuprofen [Motrin] 400 mg PO Q6HR #90 tab 05/15/22 - PHYSICAL EXAM AT DISCHARGE General Appearance: positive: No acute distress, Alert Eyes Bilateral: positive: Normal inspection Respiratory: positive: Breath sounds nml Cardiovascular: positive: Regular rate & rhythm Abdomen: positive: Nml bowel sounds, No distention, Other (Minimal hypogastric tenderness) Skin: positive: Color nml - LABS Result Diagrams: 05/14/22 05:18 05/14/22 05:18 - DIAGNOSTIC IMAGING Diagnostic Imaging Results: See rad report - QUALITY (Female Hip Fx Only) Was patient sent home on osteoporosis medication?: No (N/A) - FOLLOW UP Follow Up: [facility] Monday - TIME SPENT Time Spent in Discharge (Minutes): 45"
== END 2022-05-15 11:07 | disposition home or self-care (01) | DRG 389 ==
LOC: ED 19:53 → MS2 05-12 07:52 → OBSVTOIN 05-13 10:49
PROVIDERS: ADMIT Surgery; ATTEND Surgery
DX: K56.600 Partial intestinal obstruction, unspecified as to cause (principal); E46 Unspecified protein-calorie malnutrition; E16.2 Hypoglycemia, unspecified; K21.9 Gastro-esophageal reflux disease without esophagitis; Z32.02 Encounter for pregnancy test, result negative; F32.A Depression, unspecified; F41.9 Anxiety disorder, unspecified; F40.240 Claustrophobia; F42.9 Obsessive-compulsive disorder, unspecified; D64.9 Anemia, unspecified; R13.10 Dysphagia, unspecified; Z20.822 Contact with and (suspected) exposure to COVID-19; Z68.25 Body mass index [BMI] 25.0-25.9, adult; Z85.038 Personal history of other malignant neoplasm of large intestine; Z90.49 Acquired absence of other specified parts of digestive tract
CPT/HCPCS: 36415; 74177; 80048; 80053; 81003; 81025; 83690; 85025; 87635; 96361; 96374; 96375; 96376; 99284; 99285; A9270; J1170; J1200; Q9963; Q9967; 81001; 87086

== ENCOUNTER 2022-05-18 18:33 | Emergency (ER) | payer MEDICARE, MEDICAID ==
[2022-05-18 20:18] VITALS: BP 108/66
[2022-05-18] MEDS ORDERED: HYDROmorphone 1 MG/ML CARPUJECT IM STA (20:29)
[2022-05-18] MEDS ORDERED: diphenhydrAMINE INJ 50 MG/ML VIAL IVP STA (21:07)
[2022-05-18] MEDS ORDERED: HYDROmorphone 1 MG/ML CARPUJECT IVP STA (21:26)
--- NOTE | 2022-05-19 08:13 | ED Physician Documentation ---
History of Present Illness - Stated complaint Stated Complaint: LEG IV PX - Chief complaint Chief Complaint: General - History obtained from History obtained from: Patient - History of Present Illness Timing: Today Pain level now: 8 Improved by: nothing Worsened by: palpation - Additonal information Additional information: patient had right midline femoral vein catheter placed earlier today (approximately noon today) at [facility]. This evening she noted bleeding under the clear adhesive dressing and has been having pain at insertion site. She says she called the office of the doctor who had placed the device (Dr. Be), and a covering physician advised her to come to ED. Patient recently was inpatient at [facility] for SBO. Patient says she had the catheter placed to today for ongoing treatment of recurrent intestinal problems. She says the initial plan was a PICC line but no other access was obtainable and thus the midline femoral vein catheter placement. Review of Systems Constitutional: denies: Fever GI: denies: Abdominal Pain, Vomiting Musculoskeletal: reports: Extremity pain PD PAST MEDICAL HISTORY - Past Medical History Past Medical History: Yes Cardiovascular: None Respiratory: None Neuro: Migraines Endocrine/Autoimmune: None GI: GERD, Colon polyps, Pancreatitis, Other : Kidney stones Psych: Depression, Anxiety, Panic attacks, Claustrophobia, Obsessive compulsive disorder Musculoskeletal: None Derm: None - Past Surgical History Past Surgical History: Yes General: Appendectomy, Bowel surgery, Colonoscopy, EGD - Present Medications Home Medications: Ambulatory Orders Medication Instructions Recorded Confirmed HYDROcod/ACETAM 5/325 [[place] 5/325] 1 tablet PO Q6H PRN 05/12/22 05/18/22 diphenhydrAMINE [Benadryl] 50 mg PO Q4-6H PRN 05/12/22 05/18/22 Famotidine [Pepcid] 20 mg PO BID #60 tab 05/15/22 05/18/22 Ibuprofen [Motrin] 400 mg PO Q6HR #90 tab 05/15/22 05/18/22 - Allergies Allergies/Adverse Reactions: Allergies Allergy/AdvReac Type Severity Reaction Status Date / Time haloperidol [From Haldol] Allergy Anxiety Verified 05/11/22 20:17 metoclopramide [From Reglan] Allergy Itching Verified 05/11/22 20:17 morphine Allergy Edema Verified 05/11/22 20:17 - Social History Does the pt smoke?: No Smoking Status: Never smoker Does the pt drink ETOH?: No Does the pt have substance abuse?: No - Immunizations Immunizations are current?: Yes PD ED PE NORMAL - Vitals Vital signs reviewed: Yes - General General: Alert and oriented X 3, No acute distress, Well developed/nourished - Extremities Extremities: No edema PD ED PE EXPANDED - Extremities [place] LE visual: 1 - tenderness (2-port venous catheter insertion site; the biopatch is satu rated with blood and there is trace blood under an intact tegaderm dressing; no active bleeding. no swelling, no visible nor palpable hematoma. mild TTP immediately cephalad to insertion site) Results - Vitals Vitals: Vital Signs - 24 hr 05/18/22 05/18/22 05/18/22 18:48 20:17 21:44 Temperature 36.6 C Heart Rate 83 57 L 72 Respiratory 16 16 16 Rate Blood Pressure 130/69 108/66 O2 Saturation 98 97 99 Oxygen O2 Source Room air PD MEDICAL DECISION MAKING - ED course Complexity details: reviewed old records, considered differential, d/w patient ED course: there is trace blood under the tegaderm dressing, biopatch noted to be saturated with blood. There is mild TTP immediately cephalad to insertion site without visible nor palpable swelling. I was able to contact Dr. Be (who placed the device earlier today). He asks that the biopatch be replaced as well as the tegaderm dressing, and ED RN replaced the biopatch and tegaderm using sterile technique. Patient requested pain medication for pain at insertion site as well as chronic abdominal pain. She says she has hydrocodone at home but she was afraid to take it due to ongoing nausea. She is given 1 mg IM dilaudid. After change of biopatch and dressing, patient asks that we check to see that the catheter is functioning and ED RN was able to draw and flush both ports. Patient asks for another dose of pain medication as well as IV benadryl (specifically 50mg IV dose) which she takes for nausea. She is given 50mg IV benadryl and 1 mg IV dilaudid and discharged Departure - Departure Disposition: 01 Home, Self Care Clinical Impression: Bleeding from peripherally inserted central venous catheter (PICC) Qualifiers: Encounter type: initial encounter Qualified Code(s): T82.838A - Hemorrhage due to vascular prosthetic devices, implants and grafts, initial encounter Condition: Good Instructions: ED Wound Check Post Op Bleeding Comments: The dressing and biopatch (the round foam ring around the catheter insertion site) were changed. Discharge Date/Time: 05/18/22 21:45
== END 2022-05-18 21:45 | disposition home or self-care (01) ==
LOC: ED 18:33
DX: T82.838A Hemorrhage due to vascular prosthetic devices, implants and grafts, initial encounter (principal); Y83.8 Other surgical procedures as the cause of abnormal reaction of the patient, or of later complication, without mention of misadventure at the time of the procedure; M79.604 Pain in right leg; R10.9 Unspecified abdominal pain; G89.29 Other chronic pain; R11.0 Nausea
CPT/HCPCS: 96372; 96374; 96375; 99282; 99283; J1170; J1200

== ENCOUNTER 2022-05-20 09:41 | Emergency (ER) | payer MEDICARE, MEDICAID ==
[2022-05-20 09:49] VITALS: BP 112/64
[2022-05-20] MEDS ORDERED: HYDROcod/ACETAM 5/325 MG TABLET PO STA (09:58)
--- NOTE | 2022-05-20 10:13 | ED Physician Documentation ---
PD HPI SKIN - Stated complaint Stated Complaint: R LEG DRESSING CHANGE - Chief complaint Chief Complaint: Wound - History obtained from History obtained from: Patient - Additional information Additional information: PT comes to the ED for a dressing change to a line that was recently placed in her R thigh. She states she needed TPN, but a PICC was unable to be placed, so this line was placed, instead. She states she has had some clear fluid leakage around the line site, and the dressing is soaked again. She states her doctor told her not to keep a wet dressing there or the skin will break down. The pt also asks for a dose of pain medication. She states she lives in [facility], and has to drive all the way back, and her line site is painful. She has been staying on [place] with family these past several days. The pt was given a total of 2mg of Dilaudid last time she was here for a dressing change, the record reveals. No fevers or chills. She has not noticed any redness or swelli ng around the site. Review of Systems Ten Systems: 10 systems reviewed and negative Constitutional: reports: Reviewed and negative Eyes: reports: Reviewed and negative Ears: reports: Reviewed and negative Nose: reports: Reviewed and negative Throat: reports: Reviewed and negative Cardiac: reports: Reviewed and negative Respiratory: reports: Reviewed and negative GI: reports: Reviewed and negative : reports: Reviewed and negative Skin: reports: Reviewed and negative Musculoskeletal: reports: Reviewed and negative Neurologic: reports: Reviewed and negative Psychiatric: reports: Reviewed and negative Endocrine: reports: Reviewed and negative Immunocompromised: reports: Reviewed and negative PD PAST MEDICAL HISTORY - Past Medical History Past Medical History: Yes Cardiovascular: None Respiratory: None Neuro: Migraines Endocrine/Autoimmune: None GI: GERD, Colon polyps, Pancreatitis, Other : Kidney stones Psych: Depression, Anxiety, Panic attacks, Claustrophobia, Obsessive compulsive disorder Musculoskeletal: None Derm: None - Past Surgical History Past Surgical History: Yes General: Appendectomy, Bowel surgery, Colonoscopy, EGD - Present Medications Home Medications: Ambulatory Orders Medication Instructions Recorded Confirmed HYDROcod/ACETAM 5/325 [[place] 5/325] 1 tablet PO Q6H PRN 05/12/22 05/20/22 diphenhydrAMINE [Benadryl] 50 mg PO Q4-6H PRN 05/12/22 05/20/22 Famotidine [Pepcid] 20 mg PO BID #60 tab 05/15/22 05/20/22 Ibuprofen [Motrin] 400 mg PO Q6HR #90 tab 05/15/22 05/20/22 - Allergies Allergies/Adverse Reactions: Allergies Allergy/AdvReac Type Severity Reaction Status Date / Time haloperidol [From Haldol] Allergy Anxiety Verified 05/20/22 09:49 metoclopramide [From Reglan] Allergy Itching Verified 05/20/22 09:49 morphine Allergy Edema Verified 05/20/22 09:49 - Social History Does the pt smoke?: No Smoking Status: Never smoker Does the pt drink ETOH?: No Does the pt have substance abuse?: Yes Substance Use and Type: CBD oil / Products - Immunizations Immunizations are current?: Yes PD ED PE NORMAL - Vitals Vital signs reviewed: Yes - General General: Alert and oriented X 3, No acute distress, Well developed/nourished - HEENT HEENT: Atraumatic, PERRL, EOMI, Moist mucous membranes - Neck Neck: Supple, no meningeal sign - Respiratory Respiratory: No respiratory distress - Derm Derm: Normal color, Warm and dry, Other (Femoral line in place in proximal R thigh, near inguinal area. No redness, swelling, induration, or skin breakdown. Biopatch and gauze underlying a Tegederm are soaked with serosanguinous fluid. No purulent drainage.) - Extremities Extremities: No deformity - Neuro Neuro: Alert and oriented X 3 - Psych Psych: Normal mood, Normal affect Results - Vitals Vitals: Oxygen O2 Source Room air PD MEDICAL DECISION MAKING - ED course Complexity details: considered differential, d/w patient ED course: The pt's dressing was changed. There was no evidence of infection. I declined to give the pt a prescription for analgesia. She has been given a single dose of Vicodin here. Nursing staff gave pt some supplies and did dressing teaching with her, so she does not have to keep coming back to the ED for this. We have discussed the usual indications for return. Departure - Departure Disposition: 01 Home, Self Care Clinical Impression: Dressing change or removal, surgical wound Condition: Stable Instructions: ED Bandage Change Comments: Please proceed to [place] to [facility] cutter your prescriptions. You have received sedating medication in the emergency department, however, so somebody else should do the driving for the next 6 hours. Discharge Date/Time: 05/20/22 10:25
[2022-05-20] MEDS ORDERED: LIDOCAINE 1% 2 ML VIAL ONE (10:33)
== END 2022-05-20 10:25 | disposition home or self-care (01) ==
LOC: ED 09:41
DX: Z48.00 Encounter for change or removal of nonsurgical wound dressing (principal)
CPT/HCPCS: 99282; A9270

== ENCOUNTER 2022-05-30 13:28 | Emergency (ER) | payer MEDICARE, MEDICAID ==
--- NOTE | 2022-05-30 14:49 | ED Physician Documentation ---
PD HPI SKIN - Stated complaint Stated Complaint: RT LEG INFECTION - Chief complaint Chief Complaint: Wound - History obtained from History obtained from: Patient - History of Present Illness Timing - onset: How many days ago (4) Timing - duration: Days (4) Timing - details: Gradual onset, Still present, Waxing and waning Location: RLE (she had midline IV placed in right femoral vein 05/18/22 due to difficult IV access otherwise. Getting IV TPN at nights. She does eat as well but poor absoprtion and volume tolerance due to prior scar tissues. No rednes nor drainage. But concern about line infection.) Quality / character: Painful. No: Discolored, Swelling, Draining Associated symptoms: No: Fever, Myalgias, N/V/D Similar symptoms before: Diagnosis (has had pain in area with prior line infection, but was red as well.) Review of Systems Constitutional: denies: Fever, Chills Nose: denies: Rhinorrhea / runny nose, Congestion Throat: denies: Sore throat Respiratory: denies: Cough GI: denies: Nausea, Vomiting Skin: denies: Rash, Lesions PD PAST MEDICAL HISTORY - Past Medical History Cardiovascular: None Respiratory: None Neuro: Migraines Endocrine/Autoimmune: None GI: GERD, Colon polyps, Pancreatitis, Other : Kidney stones Psych: Depression, Anxiety, Panic attacks, Claustrophobia, Obsessive compulsive disorder Musculoskeletal: None Derm: None - Past Surgical History Past Surgical History: Yes General: Appendectomy, Bowel surgery, Colonoscopy, EGD - Present Medications Home Medications: Ambulatory Orders Medication Instructions Recorded Confirmed HYDROcod/ACETAM 5/325 [[place] 5/325] 1 tablet PO Q6H PRN 05/12/22 05/20/22 diphenhydrAMINE [Benadryl] 50 mg PO Q4-6H PRN 05/12/22 05/20/22 Famotidine [Pepcid] 20 mg PO BID #60 tab 05/15/22 05/20/22 Ibuprofen [Motrin] 400 mg PO Q6HR #90 tab 05/15/22 05/20/22 - Allergies Allergies/Adverse Reactions: Allergies Allergy/AdvReac Type Severity Reaction Status Date / Time haloperidol [From Haldol] Allergy Anxiety Verified 05/30/22 13:37 metoclopramide [From Reglan] Allergy Itching Verified 05/30/22 13:37 morphine Allergy Edema Verified 05/30/22 13:37 - Social History Does the pt smoke?: No Smoking Status: Never smoker Does the pt drink ETOH?: No Does the pt have substance abuse?: Yes - Immunizations Immunizations are current?: Yes PD ED PE NORMAL - Vitals Vital signs reviewed: Yes - General General: Alert and oriented X 3, No acute distress, Well developed/nourished - Back Back: No CVA TTP - Derm Derm: Normal color, Warm and dry - Extremities Extremities: No edema, No calf tenderness / cord, Other (right femoral/inguinal area with Catheter iV in place. Clear dressing over it. No redness, swelling, drainage, tenderness at the insertion site nor around. ) - Neuro Neuro: Alert and oriented X 3, No motor deficit, No sensory deficit Results - Vitals Vitals: Vital Signs - 24 hr 05/30/22 05/30/22 13:33 17:06 Temperature 36.8 C Heart Rate 70 69 Respiratory 20 20 Rate Blood Pressure 130/70 124/64 O2 Saturation 100 100 Oxygen O2 Source Room air - Labs Labs: Laboratory Tests 05/30/22 05/30/22 05/30/22 15:10 15:10 15:10 WBC 7.1 RBC 4.47 Hgb 10.0 L Hct 35.4 L MCV 79.2 L MCH 22.4 L MCHC 28.2 L RDW 18.2 H Plt Count 203 MPV 8.9 Neut # (Auto) 4.6 Lymph # (Auto) 1.9 [place] # (Auto) 0.5 Eos # (Auto) 0.1 Baso # (Auto) 0.0 Absolute Nucleated RBC 0.00 Nucleated RBC % 0.0 Manual Slide Review Indicated WBC Morphology NORMAL APPEARANCE Platelet Estimate NORMAL (130-450,000) Platelet Morphology NORMAL APPEARANCE RBC Morph Micro Appear 1+ ANISOCYTOSIS Sodium 138 Potassium 3.7 Chloride 102 Carbon Dioxide 25 Anion Gap 11.0 BUN 13 Creatinine 0.8 Estimated GFR (MDRD) 85 L Glucose 85 Calcium 9.5 Total Bilirubin 0.4 AST 18 ALT 12 Alkaline Phosphatase 66 C-Reactive Protein < 1.0 Total Protein 8.1 Albumin 4.2 Globulin 3.9 Albumin/Globulin Ratio 1.1 Lipase 50 Procalcitonin < 0.05 PD MEDICAL DECISION MAKING - ED course Complexity details: reviewed results (normal labs. Low suspicion for line infection so await cultures and did not give empiric abx. To return if redness, fevers/rigors, etc. ), considered differential (no redness at catheter site. To eval for line infection, can get blood cultures from perihperal and the line, CBC, CRP, procaclcitonin.), d/w patient Departure - Departure Disposition: 01 Home, Self Care Clinical Impression: Leg pain, Central line complication Condition: Stable Record reviewed to determine appropriate education?: Yes Follow-Up: YAMEL ELISE DO [Primary Care Provider] - Comments: No signs of line infection or bacteremia at this point based on blood test markers of white blood cell count, see reactive protein and procalcitonin. These are all normal. We did do blood cultures and we will see if there is any growth from those. I would have you continue normal use and infusion with the line. I do not see any signs of infection at the skin site either. Follow-up with your primary care/specialist when you are back home as planned. Return if you develop fevers, redness or drainage, worse pain or other concerns at the site. Discharge Date/Time: 05/30/22 17:51
[2022-05-30] MEDS ORDERED: diphenhydrAMINE INJ 50 MG/ML VIAL IVP STA (14:59)
[2022-05-30] MEDS ORDERED: HYDROmorphone 1 MG/ML CARPUJECT IVP STA (14:59)
[2022-05-30] MEDS ORDERED: SODIUM CHLORIDE 0.9% 1,000 ML IV STA (14:59)
[2022-05-30 15:15] LABS: BASOPHILS % (AUTO) 0.3 %; EOSINOPHILS # (AUTO) 0.1 10^3/uL (0.0-0.7); EOSINOPHILS % (AUTO) 1.4 %; HCT - HEMATOCRIT 35.4 % (37.0-47.0); LYMPHOCYTES # (AUTO) 1.9 10^3/uL (1.5-3.5); MEAN CORPUSCULAR HEMOGLOBIN 22.4 pg (27.0-31.0); MEAN CORPUSCULAR HGB CONC 28.2 g/dL (32.0-36.0); MEAN CORPUSCULAR VOLUME 79.2 fL (81.0-99.0); MEAN PLATELET VOLUME 8.9 fL (7.9-10.8); MONOCYTES # (AUTO) 0.5 10^3/uL (0.0-1.0); MONOCYTES % (AUTO) 6.8 %; NEUTROPHILS # (AUTO) 4.6 10^3/uL (1.5-6.6); NEUTROPHILS % (AUTO) 64.1 %; PLT - PLATELET COUNT 203 10^3/uL (130-450); RED BLOOD COUNT 4.47 10^6/uL (4.20-5.40); RED CELL DISTRIBUTION WIDTH 18.2 % (12.0-15.0); WHITE BLOOD COUNT 7.1 x10^3/uL (4.8-10.8)
[2022-05-30 15:35] LABS: SLIDE REVIEW? Indicated
[2022-05-30 15:36] LABS: ALBUMIN 4.2 g/dL (3.2-5.5); ALBUMIN/GLOBULIN RATIO 1.1 (1.0-2.2); ALKALINE PHOSPHATASE 66 IU/L (42-121); ALT ALANINE AMINOTRANSFERASE 12 IU/L (10-60); AST ASPARTATE AMINOTRANSFERASE 18 IU/L (10-42); BILIRUBIN,TOTAL 0.4 mg/dL (0.2-1.0); BUN - BLOOD UREA NITROGEN 13 mg/dL (6-20); CALCIUM 9.5 mg/dL (8.5-10.3); CARBON DIOXIDE - CO2 25 mmol/L (21-32); CHLORIDE 102 mmol/L (101-111); CREATININE 0.8 mg/dL (0.4-1.0); GFR - MDRD 85 (>89); GLUCOSE 85 mg/dL (70-100); LIPASE 50 U/L (22-51); PLATELET ESTIMATE, MANUAL NORMAL (130-450,000) (NORMAL); PLATELET MORPHOLOGY NORMAL APPEARANCE (NORMAL); POTASSIUM 3.7 mmol/L (3.5-5.0); SODIUM 138 mmol/L (135-145); TOTAL PROTEIN 8.1 g/dL (6.7-8.2); WBC MORPHOLOGY (MULTIPLE) NORMAL APPEARANCE (NORMAL)
[2022-05-30 15:57] LABS: CRP - C-REACTIVE PROTEIN < 1.0 mg/dL (0-1.0)
[2022-05-30] MEDS ORDERED: HYDROmorphone 2 MG/ML VIAL IVP STA (16:53)
[2022-05-30 17:06] VITALS: BP 124/64
== END 2022-05-30 17:51 | disposition home or self-care (01) ==
LOC: ED 13:28
DX: M79.604 Pain in right leg (principal); Z45.2 Encounter for adjustment and management of vascular access device
CPT/HCPCS: 36415; 80053; 83690; 84145; 85025; 86140; 87040; 96374; 96375; 99282; 99285; J1170; J1200

== ENCOUNTER 2022-06-02 15:39 | Emergency (ER) | payer MEDICARE, MEDICAID ==
[2022-06-02 15:54] VITALS: BP 126/77
[2022-06-02] MEDS ORDERED: HYDROmorphone 1 MG/ML CARPUJECT IVP STA (17:06)
[2022-06-02] MEDS ORDERED: diphenhydrAMINE INJ 50 MG/ML VIAL IVP STA (17:06)
--- NOTE | 2022-06-02 17:07 | ED Physician Documentation ---
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 She is worried about infection. She notes a small amount of blood under the dressing. She denies fevers or chills. It is painful for her. [place] She [place] in [place] and has not been using the line because she does not have TPN here. She has been seen relatively frequently for concerns for infection most recently 4 days ago at which point labs, procalcitonin level, and cultures were without pertinent positive findings. Review of Systems Constitutional: reports: Reviewed and negative Eyes: reports: Reviewed and negative Ears: reports: Reviewed and negative PD PAST MEDICAL HISTORY - Past Medical History Cardiovascular: None Respiratory: None Neuro: Migraines Endocrine/Autoimmune: None GI: GERD, Colon polyps, Pancreatitis, Other : Kidney stones Psych: Depression, Anxiety, Panic attacks, Claustrophobia, Obsessive compulsive disorder Musculoskeletal: None Derm: None - Past Surgical History Past Surgical History: Yes General: Appendectomy, Bowel surgery, Colonoscopy, EGD - Present Medications Home Medications: Ambulatory Orders Medication Instructions Recorded Confirmed HYDROcod/ACETAM 5/325 [[place] 5/325] 1 tablet PO Q6H PRN 05/12/22 05/20/22 diphenhydrAMINE [Benadryl] 50 mg PO Q4-6H PRN 05/12/22 05/20/22 Famotidine [Pepcid] 20 mg PO BID #60 tab 05/15/22 05/20/22 Ibuprofen [Motrin] 400 mg PO Q6HR #90 tab 05/15/22 05/20/22 - Allergies Allergies/Adverse Reactions: Allergies Allergy/AdvReac Type Severity Reaction Status Date / Time haloperidol [From Haldol] Allergy Anxiety Verified 06/02/22 15:53 metoclopramide [From Reglan] Allergy Itching Verified 06/02/22 15:53 morphine Allergy Edema Verified 06/02/22 15:53 - Social History Does the pt smoke?: No Smoking Status: Never smoker Does the pt drink ETOH?: No Does the pt have substance abuse?: Yes - Immunizations Immunizations are current?: Yes PD ED PE NORMAL - Vitals Vital signs reviewed: Yes - General General: Alert and oriented X 3, No acute distress - HEENT HEENT: PERRL, EOMI - Back Back: No CVA TTP - Derm Derm: Normal color, Warm and dry - Extremities Extremities: Other (There is a 2 lm midline in the right groin, the white lumen draws and flushes easily, the red lumen flushes easily but does not draw. There is just a dot of blood on her Biopatch without significant overt redness or swelling. No calf pain or pedal edema.) - Neuro Neuro: Alert and oriented X 3, Normal speech Results - Vitals Vitals: Vital Signs - 24 hr 06/02/22 15:51 Temperature 36.7 C Heart Rate 93 Respiratory 16 Rate Blood Pressure 126/77 O2 Saturation 99 Oxygen O2 Source Room air - Labs Labs: Laboratory Tests 06/02/22 06/02/22 06/02/22 17:33 17:33 17:33 WBC 6.1 RBC 3.88 L Hgb 8.5 L Hct 30.0 L MCV 77.3 L MCH 21.9 L MCHC 28.3 L RDW 18.1 H Plt Count 194 MPV 9.3 Neut # (Auto) 3.4 Lymph # (Auto) 2.1 [place] # (Auto) 0.4 Eos # (Auto) 0.1 Baso # (Auto) 0.0 Absolute Nucleated RBC 0.00 Nucleated RBC % 0.0 Manual Slide Review Indicated WBC Morphology NORMAL APPEARANCE Platelet Estimate NORMAL (130-450,000) Platelet Morphology NORMAL APPEARANCE RBC Morph Micro Appear 1+ HYPOCHROMASIA Sodium 136 Potassium 3.7 Chloride 102 Carbon Dioxide 25 Anion Gap 9.0 BUN 13 Creatinine 0.7 Estimated GFR (MDRD) 99 Glucose 91 Calcium 8.8 Procalcitonin < 0.05 PD MEDICAL DECISION MAKING - ED course ED course: 27-year-old woman with history of colectomy presents with concerns to her right groin midline albeit the physical examination there is normal. Concerning differential would include DVT or line infection although she has been worked up for a line infection fairly frequent recently just a few days ago with negative results. Lab work shows a white count of 6000 with negative procalcitonin and a DVT ultrasound was negative. She was administered 1 mg Dilaudid for her pain while here and she also requested Benadryl for the Nausea stating that is what works best for her. Prior to discharge she asked for more pain medicine and Toradol was ordered, subsequently she refused this stating That Toradol does not work for her. She specifically requested 2 mg of IV Dilaudid prior to discharge which I discussed with her would not be appropriate given the lack of abnormal physical exam or pertinent positive painful objective findings especially noting her MICHAEL E form showing 25 emergency department visits in the last year and [employer] suggesting that she is on chronic pain management. I asked her if she had pain management at home and she said that she left her pain meds at home in [place] and I recommended that she return there or have someone bring her pain medications as we cannot accelerate her pain management on top of her chronic routine. Departure - Departure Disposition: Home, Self Care Clinical Impression: Central line complication Qualifiers: Encounter type: initial encounter Qualified Code(s): T82.9XXA - Unspecified complication of cardiac and vascular prosthetic device, implant and graft, initial encounter Leg pain Qualifiers: Laterality: right Qualified Code(s): M79.604 - Pain in right leg Condition: Good Record reviewed to determine appropriate education?: Yes Instructions: PICC Care Dc Comments: Your white blood cell count is 6 and her procalcitonin level is normal. These are not consistent with a bacterial infection. Also the ultrasound was negative for blood clot thankfully. Recommend you restart TPN as soon as possible and follow-up with your primary care physician, return for new or worsening symptoms. Especially if fever or leg swelling.
[2022-06-02 17:44] LABS: BASOPHILS % (AUTO) 0.3 %; EOSINOPHILS # (AUTO) 0.1 10^3/uL (0.0-0.7); HGB - HEMOGLOBIN 8.5 g/dL (12.0-16.0); LYMPHOCYTES # (AUTO) 2.1 10^3/uL (1.5-3.5); LYMPHOCYTES % (AUTO) 34.2 %; MEAN CORPUSCULAR HEMOGLOBIN 21.9 pg (27.0-31.0); MEAN CORPUSCULAR HGB CONC 28.3 g/dL (32.0-36.0); MEAN CORPUSCULAR VOLUME 77.3 fL (81.0-99.0); MEAN PLATELET VOLUME 9.3 fL (7.9-10.8); MONOCYTES # (AUTO) 0.4 10^3/uL (0.0-1.0); NEUTROPHILS # (AUTO) 3.4 10^3/uL (1.5-6.6); NEUTROPHILS % (AUTO) 56.2 %; PLT - PLATELET COUNT 194 10^3/uL (130-450); RED BLOOD COUNT 3.88 10^6/uL (4.20-5.40); RED CELL DISTRIBUTION WIDTH 18.1 % (12.0-15.0); WHITE BLOOD COUNT 6.1 x10^3/uL (4.8-10.8)
[2022-06-02 17:57] LABS: CALCIUM 8.8 mg/dL (8.5-10.3); CREATININE 0.7 mg/dL (0.4-1.0); POTASSIUM 3.7 mmol/L (3.5-5.0)
[2022-06-02 18:09] LABS: PLATELET ESTIMATE, MANUAL NORMAL (130-450,000) (NORMAL); PLATELET MORPHOLOGY NORMAL APPEARANCE (NORMAL); SLIDE REVIEW? Indicated; WBC MORPHOLOGY (MULTIPLE) NORMAL APPEARANCE (NORMAL)
[2022-06-02] MEDS ORDERED: KETOROLAC 15 MG/ML VIAL IVP STA (18:19)
--- NOTE | 2022-06-02 19:10 | Ultrasound Report ---
PROCEDURE: Duplex Ext Veins Right INDICATIONS: rle pain TECHNIQUE: Real-time imaging, as well as color and pulse Doppler interrogation, were performed of the lower extr emity deep veins from the inguinal ligament to the popliteal fossa. COMPARISON: None. FINDINGS: The deep veins are normally compressible, and free of intraluminal thrombus. Color and pu lse Doppler demonstrate normal phasic intraluminal flow. There is normal augmentation response to di stal compression maneuver. IMPRESSION: No deep venous thrombosis is visualized. The exam is somewhat limited due to the TPN tub e and bandage. Reviewed by: John Russ MD on 06/02/2022 7:09 PM PDT Approved by: John Russ MD on 06/02/2022 7:09 PM PDT Station ID: [id number]
== END 2022-06-02 18:34 | disposition home or self-care (01) ==
LOC: ED 15:39
DX: M79.604 Pain in right leg (principal); T82.848A Pain due to vascular prosthetic devices, implants and grafts, initial encounter; Y83.8 Other surgical procedures as the cause of abnormal reaction of the patient, or of later complication, without mention of misadventure at the time of the procedure; Z90.49 Acquired absence of other specified parts of digestive tract; Z86.010 Personal history of colon polyps; R11.0 Nausea
CPT/HCPCS: 36415; 80048; 84145; 85025; 93971; 96374; 96375; 99282; 99284; J1170; J1200

== ENCOUNTER 2023-03-20 21:28 | Emergency (ER) | payer MEDICARE, MEDICAID ==
[2023-03-20 22:36] LABS: BILIRUBIN,URINE NEGATIVE (NEGATIVE); GLUCOSE, URINE (UA) NEGATIVE (NEGATIVE); KETONES,URINE (UA) NEGATIVE (NEGATIVE); LEUKOCYTE ESTERASE, URINE NEGATIVE (NEGATIVE); NITRITE,URINE NEGATIVE (NEGATIVE); OCCULT BLOOD,URINE NEGATIVE (NEGATIVE); PH,URINE 5.5 PH (5.0-7.5); PROTEIN,URINE NEGATIVE (NEGATIVE); UROBILINOGEN,URINE 1 (NORMAL) E.U./dL (NORMAL)
[2023-03-20 22:40] LABS: CLARITY,URINE CLEAR (CLEAR); HCG UR QUAL NEGATIVE
[2023-03-20 22:46] LABS: BASOPHILS % (AUTO) 0.1 %; EOSINOPHILS # (AUTO) 0.1 10^3/uL (0.0-0.7); EOSINOPHILS % (AUTO) 1.4 %; HCT - HEMATOCRIT 41.6 % (37.0-47.0); HGB - HEMOGLOBIN 12.9 g/dL (12.0-16.0); LYMPHOCYTES # (AUTO) 1.9 10^3/uL (1.5-3.5); LYMPHOCYTES % (AUTO) 27.7 %; MEAN CORPUSCULAR HEMOGLOBIN 28.3 pg (27.0-31.0); MEAN CORPUSCULAR VOLUME 91.2 fL (81.0-99.0); MEAN PLATELET VOLUME 9.4 fL (7.9-10.8); MONOCYTES # (AUTO) 0.5 10^3/uL (0.0-1.0); MONOCYTES % (AUTO) 6.9 %; NEUTROPHILS # (AUTO) 4.5 10^3/uL (1.5-6.6); NEUTROPHILS % (AUTO) 63.8 %; PLT - PLATELET COUNT 205 10^3/uL (130-450); RED BLOOD COUNT 4.56 10^6/uL (4.20-5.40); RED CELL DISTRIBUTION WIDTH 15.7 % (12.0-15.0)
[2023-03-20 23:02] LABS: ALBUMIN 3.9 g/dL (3.2-5.5); ALBUMIN/GLOBULIN RATIO 1.2 (1.0-2.2); CALCIUM 9.1 mg/dL (8.5-10.3); CREATININE 0.7 mg/dL (0.4-1.0); POTASSIUM 3.6 mmol/L (3.5-5.0); TOTAL PROTEIN 7.1 g/dL (6.7-8.2)
[2023-03-20] MEDS ORDERED: SODIUM CHLORIDE 0.9% 1,000 ML IV STA (23:08)
[2023-03-20] MEDS ORDERED: HYDROmorphone 1 MG/ML CARPUJECT IVP STA (23:08)
[2023-03-20] MEDS ORDERED: diphenhydrAMINE INJ 50 MG/ML VIAL IVP STA (23:09)
--- NOTE | 2023-03-21 01:00 | ED Physician Documentation ---
PD HPI ABD PAIN - Stated complaint Stated Complaint: VOMITING,ABD PX - Chief complaint Chief Complaint: Abd Pain - History obtained from History obtained from: Patient - Additional information Additional information: HPI from patient. Patient c/o abdominal pain, generalized and cramping, with nausea and vomiting. Symptoms began 3 days ago, which is also when she last had a BM. She says today she has been unable to keep PO down including medications. 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 She says she has pain medication at home (hydrocodone) but, again, cannot keep this, or any meds, down due to n/v. She says she has had SBO before and this feels similar in its symptoms. Denies fever. Review of Systems Constitutional: reports: Reviewed and negative Cardiac: reports: Reviewed and negative Respiratory: reports: Reviewed and negative GI: reports: Abdominal Pain, Nausea, Vomiting. denies: Abdominal Swelling, Diarrhea, Bloody / black stool : denies: Dysuria, Frequency, Now EGA PD PAST MEDICAL HISTORY - Past Medical History Cardiovascular: None Respiratory: None Neuro: Migraines Endocrine/Autoimmune: None GI: GERD, Colon polyps, Pancreatitis, Other : Kidney stones Psych: Depression, Anxiety, Panic attacks, Claustrophobia, Obsessive compulsive disorder Musculoskeletal: None Derm: None - Past Surgical History Past Surgical History: Yes General: Appendectomy, Bowel surgery, Colonoscopy, EGD - Present Medications Home Medications: Ambulatory Orders Medication Instructions Recorded Confirmed HYDROcod/ACETAM 5/325 [[place] 5/325] 1 tablet PO Q6H PRN 05/12/22 05/20/22 diphenhydrAMINE [Benadryl] 50 mg PO Q4-6H PRN 05/12/22 05/20/22 Famotidine [Pepcid] 20 mg PO BID #60 tab 05/15/22 05/20/22 Ibuprofen [Motrin] 400 mg PO Q6HR #90 tab 05/15/22 05/20/22 - Allergies Allergies/Adverse Reactions: Allergies Allergy/AdvReac Type Severity Reaction Status Date / Time haloperidol [From Haldol] Allergy Anxiety Verified 03/20/23 21:46 levofloxacin [From Levaquin] Allergy Itching Verified 03/20/23 21:46 metoclopramide [From Reglan] Allergy Itching Verified 03/20/23 21:46 morphine Allergy Edema Verified 03/20/23 21:46 - Social History Does the pt smoke?: No Smoking Status: Never smoker Does the pt drink ETOH?: No Does the pt have substance abuse?: Yes - Immunizations Immunizations are current?: Yes PD ED PE NORMAL - Vitals Vital signs reviewed: Yes - General General: Alert and oriented X 3, No acute distress - Neck Neck: Supple, no meningeal sign - Cardiac Cardiac: RRR, No murmur - Respiratory Respiratory: No respiratory distress, Clear bilaterally - Abdomen Abdomen: Soft, Non distended, Other (mild, diffuse TTP without guarding or rebound. diminished BS) - Back Back: No CVA TTP - Derm Derm: Normal color, Warm and dry - Extremities Extremities: No edema Results - Vitals Vitals: Oxygen O2 Source Room air - Labs Labs: Laboratory Tests 03/20/23 03/20/23 03/20/23 22:20 22:37 22:37 WBC 7.0 RBC 4.56 Hgb 12.9 Hct 41.6 MCV 91.2 MCH 28.3 MCHC 31.0 L RDW 15.7 H Plt Count 205 MPV 9.4 Neut # (Auto) 4.5 Lymph # (Auto) 1.9 [place] # (Auto) 0.5 Eos # (Auto) 0.1 Baso # (Auto) 0.0 Absolute Nucleated RBC 0.00 Nucleated RBC % 0.0 Sodium 141 Potassium 3.6 Chloride 107 Carbon Dioxide 26 Anion Gap 8.0 BUN 12 Creatinine 0.7 Estimated GFR (MDRD) 98 Glucose 94 Calcium 9.1 Total Bilirubin 1.0 AST 15 ALT 13 Alkaline Phosphatase 48 Total Protein 7.1 Albumin 3.9 Globulin 3.2 Albumin/Globulin Ratio 1.2 Lipase 53 H Urine Color YELLOW Urine Clarity CLEAR Urine pH 5.5 Ur Specific [place] >=1.030 H Urine Protein NEGATIVE Urine Glucose (UA) NEGATIVE Urine Ketones NEGATIVE Urine Occult Blood NEGATIVE Urine Nitrite NEGATIVE Urine Bilirubin NEGATIVE Urine Urobilinogen 1 (NORMAL) Ur Leukocyte Esterase NEGATIVE Ur Microscopic Review NOT INDICATED Urine Culture Comments NOT INDICATED Urine HCG, Qual NEGATIVE - Rads (name of study) CT A/P with IV contrast Relevant Findings:: Prelim report reviewed, See rad report PD Medical Decision Making - ED course Complexity details: reviewed old records (reviewed MACI form , reviewed previous visit (May 2022). ), reviewed results, re-evaluated patient, considered differential, d/w patient ED course: Patient is given 2 liters NS IV, dilaudid 1 mg IV with repeat doses, and benadr yl 25mg IV with repeat dose (patient says none of the anti-nausea medications work and thus she typically gets/uses benadryl for sedation and anti-nausea). Normal CBC. ER abdominal panel is normal except for trivial elevation in lipase (53). Normal UA exept SG 1.030 (likely representing dehydration, although bun/creatinine do not). CT without diagnostic results. No evidence of SBO. Of note, there is a large fluid-filled collection in the region of the left adnexa which was also seen on CT A/P when she was evaluated here last year (April). The finding is in the same spot, but significantly larger by comparison. Given its chronicity and lack of any obstructive features of surrounding structures, this is likely incidental, but I heavily emphasized the need for follow up regarding this le adriana. Patient indicates to me she does not recall if this has been evaluated yet. I note on MACI form that this patient has had many ED visits and inpatient stays at [facility] in [place]. MACI form does have some mention of left ovarian cyst, left pelvic pain. Nonetheless, I emphasized to her the importance of figuring out whether her primary provider(s) have undertaken appropriate testing of this fluid collection seen on [facility] CT scan (by appropriate I mean that the nature of the lesion has been determined to be benign and/or self-limited, or else serious/dangerous etiologies of such a finding have effectively been ruled out by appropriate testing). Jory is her 25th ED visit over past 12 months to 5 different EDs. Departure - Departure Disposition: Home, Self Care Clinical Impression: Abdominal pain Qualifiers: Abdominal location: generalized Qualified Code(s): R10.84 - Generalized abdominal pain Condition: Good Instructions: ED Abdominal Pain Female Non-Specific Abdominal Pain Comments: There were no diagnostic findings on jory's tests, including the blood tests and the CT scan of your abdomen/pelvis. The cause of your abdominal pain is not apparent at this time. Small bowel obstruction is very unlikely at this time given lack of findings on CT scan to support or suggest the diagnosis. As we discussed, there is a fluid collection in the left pelvis on the CT scan. This was noted on the last CT scan you had at this hospital (which was performed 05/12/2022). This was already a large fluid collection last April, and it is larger on [facility]'s CT scan. The nature of this finding is not apparent; given it's chronicity, I think this is likely an incidental finding (regarding your pain), but it is VERY IMPORTANT that you follow up with your primary care provider for reevaluation of your symptoms in general, but also for possible further study/testing regarding this finding. Contact your primary care provider in the morning when the office opens to arrange for next available appointment for reevaluation. Forms: PCP List Discharge Date/Time: 03/21/23 06:04
[2023-03-21] MEDS ORDERED: iohexoL-300 100 ML VIAL IVP ONE (01:21)
[2023-03-21] MEDS ORDERED: HYDROmorphone 1 MG/ML CARPUJECT IVP STA ×2 (01:29→05:26)
--- NOTE | 2023-03-21 01:45 | CT Report ---
PROCEDURE: ABDOMEN/PELVIS W INDICATIONS: abd. pain, h/o SBO CONTRAST: Omni 300 100ml TECHNIQUE: After the administration of intravenous contrast, 5 mm thick sections acquired from the diaphragms to the symphysis. 5 mm thick coronal and sagittal reformats were acquired. For radiation dose reducti on, the following was used: automated exposure control, adjustment of mA and/or kV according to kamila ent size. COMPARISON: CT abdomen/pelvis 05/12/2020 FINDINGS: Image quality: Excellent. Lung bases and heart: Unremarkable. Liver: No solid mass. Gallbladder and biliary tree: No radiopaque stones or wall thickening. No biliary dilation. Spleen: No splenomegaly. Pancreas: No pancreatic ductal dilation. Adrenals: No adrenal nodule. Kidneys and ureters: Postsurgical changes are seen from left nephrectomy. No mass is seen in the steven l bed. Left lower quadrant renal transplant is seen. No hydronephrosis. Bowel and peritoneum: Postsurgical changes are seen from prior colectomy. Fluid is seen within the re ctum. No signs of small bowel obstruction. Stomach is unremarkable. Large fluid collection is again s een in the left adnexal region measuring up to 10.7 x 5.8 cm (64/2), increased in size when compared to the CT from 05/12/2022. Lymph nodes: No central or retroperitoneal adenopathy. Vessels: No infrarenal aortic aneurysm. Enhancing collateral vessels again seen in the anterior simul taneous tissues. PELVIS Reproductive organs: Unremarkable. Bladder: No abnormal wall thickening, accounting for underdistension. Pelvic lymph nodes: No pelvic adenopathy by size criteria. Bones: No aggressive osseous abnormality. Other: No significant ventral or inguinal hernia. IMPRESSION: 1.Postsurgical changes are seen in the abdomen. No signs of small bowel obstruction. Fluid material s een in the rectum, and correlation for causes of diarrhea is recommended. 2.Fluid-filled structure in the left adnexa has increased in size and appeared to the CT from 022. This again may represent hydrosalpinx versus a large ovarian cyst or other cystic lesion. Pelvic ultrasound could be performed for further evaluation if indicated clinically. 3.Postsurgical changes from left nephrectomy. No mass is seen in the left renal bed. Normal appearanc e of the left lower quadrant transplanted kidney. No hydronephrosis is seen bilaterally. Reviewed by: Bryce Chappell MD on 03/21/2023 1:43 AM PDT Approved by: Bryce Chappell MD on 03/21/2023 1:43 AM PDT Station ID: [id number]
[2023-03-21] MEDS ORDERED: diphenhydrAMINE INJ 50 MG/ML VIAL IVP STA (02:28)
[2023-03-21] MEDS ORDERED: SODIUM CHLORIDE 0.9% 1,000 ML IV STA (03:31)
[2023-03-21 06:11] VITALS: BP 107/77; O2SAT 98
== END 2023-03-21 06:04 | disposition home or self-care (01) ==
LOC: ED 21:28
DX: R10.84 Generalized abdominal pain (principal)
CPT/HCPCS: 36415; 74177; 80053; 81003; 81025; 83690; 85025; 96374; 96375; 96376; 99284; J1170; J1200; Q9967; 81001; 87086